=== PATIENT | female | born 1955 | race Caucasian/White ===

== ENCOUNTER 2022-02-13 05:44 | Day surgery (SDC) | payer OTHER, MEDICAID ==
[2022-02-11 10:00] LABS: COVID AG,FIA SOURCE NASOPHARYNGEAL
[~2022-02-13] VITALS: Ht 170.2 cm; Wt 90.9 kg
[~2022-02-13 05:44] MED LIST: CYCLOPENTOLATE HCL 1% 2 ML OPHTHALMIC SOLUTION ONE; KETOROLAC TROMETHAMINE 0.5% 5 ML OPHTHALMIC SOLUTION ONE; MOXIFLOXACIN HCL 0.5% 3 ML OPHTHALMIC SOLUTION ONE; PHENYLEPHRINE HCL 2.5% 2 ML OPHTHALMIC SOLUTION ONE; RINGERS SOLUTION,LACTATED 500 ML IV ONE; TETRACAINE HCL/PF 0.5% 4 ML OPHTHALMIC SOLUTION ONE; TROPICAMIDE 1% 2 ML OPHTHALMIC SOLUTION ONE
[2022-02-13] MEDS ORDERED: LIDOCAINE/PF 1% 2 ML VIAL IM ONE (05:45)
[2022-02-13] MEDS ORDERED: TETRACAINE HCL/PF 0.5% 4 ML OPHTHALMIC SOLUTION OS ONE (05:45)
[2022-02-13] MEDS ORDERED: POVIDONE-IODINE 10% 15 ML SOLUTION UD TP ONE (05:45)
[2022-02-13] MEDS ORDERED: CHONDR SULF A SOD/HYALURONATE 1.05 ML KIT IO ONE (05:45)
[2022-02-13] MEDS ORDERED: EPINEPHrine 1:10,000 [1 MG/10 ML] SYRINGE IVP ONE (05:45)
[2022-02-13] MEDS ORDERED: CARV3 PO (05:59)
[2022-02-13] MEDS ORDERED: ASPI-1450 PO (05:59)
[2022-02-13] MEDS ORDERED: ESCI-8 PO (05:59)
[2022-02-13] MEDS ORDERED: ISOS30TA92 PO (06:04)
[2022-02-13] MEDS ORDERED: SITA25 PO (06:04)
[2022-02-13] MEDS ORDERED: TICA60TA PO (06:04)
[2022-02-13] MEDS ORDERED: FURO20 PO (06:04)
[2022-02-13] MEDS ORDERED: TRAZ-252 PO (06:04)
[2022-02-13] MEDS ORDERED: FAMO20 PO (06:04)
[2022-02-13] MEDS: TROPICAMIDE 1% 2 ML OPHTHALMIC SOLUTION OD SCH ×3 (06:26→06:43)
[2022-02-13] MEDS: KETOROLAC TROMETHAMINE 0.5% 5 ML OPHTHALMIC SOLUTION OD SCH ×3 (06:26→06:42)
[2022-02-13] MEDS: MOXIFLOXACIN HCL 0.5% 3 ML OPHTHALMIC SOLUTION OD SCH ×3 (06:26→06:43)
[2022-02-13] MEDS: PHENYLEPHRINE HCL 2.5% 2 ML OPHTHALMIC SOLUTION OD SCH ×3 (06:27→06:43)
[2022-02-13 07:06] LABS: GLUCOMETER DEV NAME(LOC) SDS.; GLUCOSE,POINT OF CARE 275 MG/DL (70-110)
== END 2022-02-13 09:00 | disposition home or self-care (01) ==
LOC: SURGERY 05:44
PROVIDERS: ATTEND Ophthalmology
DX: E11.36 Type 2 diabetes mellitus with diabetic cataract (principal); H25.11 Age-related nuclear cataract, right eye; I10 Essential (primary) hypertension; Z86.73 Personal history of transient ischemic attack (TIA), and cerebral infarction without residual deficits; F32.9 Major depressive disorder, single episode, unspecified; Z79.899 Other long term (current) drug therapy; Z98.890 Other specified postprocedural states
CPT/HCPCS: 66984; 82962; 87426; C9803; J0171; J3490; J7120; Q9967; V2632; 93005

== ENCOUNTER 2022-06-19 05:14 | Day surgery (SDC) | payer OTHER, MEDICAID ==
[2022-06-18 11:07] LABS: COVID AG,FIA SOURCE NASOPHARYNGEAL
[~2022-06-19] VITALS: Ht 170.2 cm; Wt 86.3 kg
[~2022-06-19 05:14] MED LIST changes: +ASPI-1450 PO; +CARV3 PO; -CYCLOPENTOLATE HCL 1% 2 ML OPHTHALMIC SOLUTION ONE; +ESCI-8 PO; +FAMO20 PO; +FURO20 PO; +ISOS30TA92 PO; -KETOROLAC TROMETHAMINE 0.5% 5 ML OPHTHALMIC SOLUTION ONE; -MOXIFLOXACIN HCL 0.5% 3 ML OPHTHALMIC SOLUTION ONE; -PHENYLEPHRINE HCL 2.5% 2 ML OPHTHALMIC SOLUTION ONE; -TETRACAINE HCL/PF 0.5% 4 ML OPHTHALMIC SOLUTION ONE; +TICA60TA PO; +TRAZ-252 PO; -TROPICAMIDE 1% 2 ML OPHTHALMIC SOLUTION ONE
[2022-06-19] MEDS ORDERED: TETRACAINE HCL/PF 0.5% 4 ML OPHTHALMIC SOLUTION OD ONE (05:15)
[2022-06-19] MEDS ORDERED: EPINEPHrine 1:1,000 [1 MG/ML] VIAL IM ONE (05:15)
[2022-06-19] MEDS ORDERED: BALANCED SALT 15 ML OPHTHALMIC IRRIG.SOLN OD ONE (05:15)
[2022-06-19] MEDS ORDERED: LIDOCAINE/PF 1% 2 ML VIAL IM ONE (05:15)
[2022-06-19] MEDS ORDERED: CHONDR SULF A SOD/HYALURONATE 1.05 ML KIT IO ONE (05:15)
[2022-06-19] MEDS ORDERED: LIDOCAINE/PF 1% 2 ML VIAL ONE (06:10)
[2022-06-19] MEDS ORDERED: EPINEPHrine 1:1,000 [1 MG/ML] VIAL ONE (06:10)
[2022-06-19] MEDS ORDERED: CHLORHEXIDINE GLUCONATE 4% 118 ML TOPICAL LIQUID TP ONE (06:11)
[2022-06-19] MEDS ORDERED: MOXIFLOXACIN HCL 0.5% 3 ML OPHTHALMIC SOLUTION ONE (06:35)
[2022-06-19] MEDS ORDERED: PHENYLEPHRINE HCL 2.5% 2 ML OPHTHALMIC SOLUTION ONE (06:35)
[2022-06-19] MEDS ORDERED: KETOROLAC TROMETHAMINE 0.5% 5 ML OPHTHALMIC SOLUTION ONE (06:35)
[2022-06-19] MEDS ORDERED: TROPICAMIDE 1% 2 ML OPHTHALMIC SOLUTION ONE (06:35)
[2022-06-19] MEDS: TROPICAMIDE 1% 2 ML OPHTHALMIC SOLUTION OS SCH ×3 (06:42→06:54)
[2022-06-19] MEDS: PHENYLEPHRINE HCL 2.5% 2 ML OPHTHALMIC SOLUTION OS SCH ×3 (06:42→06:54)
[2022-06-19] MEDS: MOXIFLOXACIN HCL 0.5% 3 ML OPHTHALMIC SOLUTION OS SCH ×3 (06:42→06:54)
[2022-06-19] MEDS: KETOROLAC TROMETHAMINE 0.5% 5 ML OPHTHALMIC SOLUTION OS SCH ×3 (06:42→06:54)
[2022-06-19 07:26] LABS: GLUCOMETER DEV NAME(LOC) SDS.; GLUCOSE,POINT OF CARE 74 MG/DL (70-110)
[2022-06-19] MEDS ORDERED: SODIUM CHLORIDE 0.9% 1,000 ML IV ONE (09:00)
[2022-06-19] MEDS ORDERED: FentaNYL CITRATE PF 100 MCG/2 ML VIAL IVP ONE (12:00)
[2022-06-19] MEDS ORDERED: MIDAZOLAM HCL 2 MG/2 ML VIAL IVP ONE (12:00)
== END 2022-06-19 09:40 | disposition home or self-care (01) ==
LOC: SURGERY 05:14
PROVIDERS: ATTEND Ophthalmology
DX: H25.12 Age-related nuclear cataract, left eye (principal); I10 Essential (primary) hypertension; E11.9 Type 2 diabetes mellitus without complications; Z20.822 Contact with and (suspected) exposure to COVID-19; Z79.4 Long term (current) use of insulin; Z79.899 Other long term (current) drug therapy; Z86.73 Personal history of transient ischemic attack (TIA), and cerebral infarction without residual deficits; Z88.1 Allergy status to other antibiotic agents; Z88.2 Allergy status to sulfonamides; Z91.013 Allergy to seafood; Z91.041 Radiographic dye allergy status
CPT/HCPCS: 93005; 87426; 66984; 82962; C9803; J0171; J3010; J3490; J2250; Q9967; V2632